=== PATIENT | female | born 1970 ===

== ENCOUNTER 2021-04-09 07:30 | Inpatient (IN) | payer OTHER ==
[2021-04-09] MEDS ORDERED: COZAAR100 MG (09:52)
[2021-04-12] MEDS ORDERED: SYNTHROID88 MCG PO (13:59)
[2021-04-12] MEDS ORDERED: NORVASC5 MG PO (13:59)
[2021-04-13] MEDS ORDERED: CELECOXIB200 MG (16:15)
[2021-04-13] MEDS ORDERED: QVAR REDIHALE10.6 G1 (16:15)
== END 2021-04-16 17:51 | DRG 470 ==
LOC: EDSTATUS 07:30 → ADM 07:30 → SURH 04-13 07:00 → EDBD 04-13 07:30 → SURH 04-13 07:30 → O/R 04-13 10:02 → SURH 04-13 10:02
PROVIDERS: ADMIT Orthopaedic Surgery; ATTEND Orthopaedic Surgery
PROC: 0SRC0J9 Replacement of Right Knee Joint with Synthetic Substitute, Cemented, Open Approach (ICD-10-PCS; principal; 2021-04-13 07:00)
DX: M17.11 Unilateral primary osteoarthritis, right knee (principal); D62 Acute posthemorrhagic anemia; M85.661 Other cyst of bone, right lower leg; I10 Essential (primary) hypertension; Z20.822 Contact with and (suspected) exposure to COVID-19